=== PATIENT | male | born 1995 ===

== ENCOUNTER 2022-03-15 21:24 | Inpatient (IN) | payer MEDICAID ==
[~2022-03-15] VITALS: Ht 167.6 cm; Wt 64.0 kg
[2022-03-15] MEDS ORDERED: DIAZEPAM 5 MG/ML 2 ML SYRINGE IM ONE (22:30)
[2022-03-15 22:51] LABS: COVID AG,FIA SOURCE NASAL SWAB
[2022-03-15 23:34] LABS: BASOPHILS % (AUTO) 0.3 % (0.0-2.0); EOSINOPHILS % (AUTO) 0.4 % (1.0-6.0); HEMATOCRIT 38.6 % (41-53); HEMOGLOBIN 13.6 g/dL (13.5-17.5); LYMPHOCYTES % (AUTO) 27.9 % (22.0-44.0); MEAN CORPUSCULAR HEMOGLOBIN 30.6 pg (26.0-34.0); MEAN CORPUSCULAR HGB CONC 35.2 G/dL (31.0-37.0); MEAN CORPUSCULAR VOLUME 87 fL (80-100); MONOCYTES # (AUTO) 0.8 K/uL (0.1-1.0); MONOCYTES % (AUTO) 7.8 % (2.0-9.0); NEUTROPHILS # (AUTO) 6.8 K/uL (1.8-7.7); NEUTROPHILS % (AUTO) 63.6 % (40.0-70.0); PLATELET COUNT (AUTO) 237 K/uL (150-450); RED BLOOD CELL COUNT(AUTO) 4.44 MIL/uL (4.50-5.90)
[2022-03-16 00:06] LABS: ANION GAP 12 mmol/L (8-16); CALCIUM, TOTAL 9.1 mg/dL (8.8-10.5); CARBON DIOXIDE 29 mmol/L (22-29); CHLORIDE 104 mmol/L (98-107); GLUCOSE,RANDOM 85 mg/dL (70-110); POTASSIUM 3.5 mmol/L (3.5-5.1); SODIUM SERUM 145 mmol/L (136-145); UREA NITROGEN, BLOOD 14 mg/dL (7-18)
[2022-03-16 00:07] LABS: GLOMERULAR FILTR. RATE CALC > 60 mL/min (>60)
[2022-03-16 00:12] LABS: ALANINE AMINOTRANSFERASE 33 U/L (12-78); ALBUMIN 3.9 g/dL (3.4-5.0); ALKALINE PHOSPHATASE 110 U/L (46-116); ASPARTATE AMINOTRANSFERASE 41 U/L (15-37); BILIRUBIN,TOTAL 0.8 mg/dL (0.1-1.0); TOTAL PROTEIN, SERUM 7.4 g/dL (6.4-8.2)
[2022-03-16] MEDS ORDERED: HALOPERIDOL LACTATE 5 MG/ML VIAL IM ONE (06:30)
[2022-03-16] MEDS ORDERED: LORazepam 2 MG/ML VIAL IM ONE (06:30)
[2022-03-16] MEDS ORDERED: DiphenhydrAMINE HCL 50 MG/ML VIAL IM ONE (06:30)
[2022-03-16] MEDS ORDERED: KETOROLAC TROMETHAMINE 60 MG/2 ML VIAL IM ONE (06:34)
[2022-03-16 11:10] VITALS: BP 103/66
[2022-03-17 09:59] VITALS: BP 91/55
[2022-03-17] MEDS: ARIPiprazole 10 MG TABLET PO SCH (11:11)
[2022-03-17 16:16] VITALS: BP 99/69
[2022-03-17] MEDS ORDERED: PETROLATUM,WHITE 28 GM JELLY TP PRN (17:30)
[2022-03-17] MEDS ORDERED: ALBUTEROL SULFATE HFA 90 MCG/PUFF 8 GM INHALER IH PRN (17:30)
[2022-03-17] MEDS ORDERED: NICOTINE 14 MG/24 HOUR PATCH TD PRN (17:30)
[2022-03-17] MEDS ORDERED: LOPERAMIDE HCL 2 MG CAPSULE PO PRN (17:30)
[2022-03-17] MEDS ORDERED: ONDANSETRON HCL 4 MG TABLET PO PRN (17:30)
[2022-03-17] MEDS ORDERED: CloNIDine HCL 0.1 MG TABLET PO PRN (17:30)
[2022-03-17] MEDS ORDERED: DOCUSATE SODIUM 100 MG CAPSULE PO PRN (17:30)
[2022-03-17] MEDS ORDERED: GuaiFENesin/D-METHORPHAN [SUGAR-FREE] 200-20MG/10 ML SYRUP UDCUP PO PRN (17:30)
[2022-03-17] MEDS ORDERED: MAGNESIUM HYDROXIDE SUSPENSION 30 ML UDCUP PO PRN (17:30)
[2022-03-17] MEDS ORDERED: ACETAMINOPHEN 325 MG TABLET PO PRN (17:30)
[2022-03-17] MEDS ORDERED: MAG HYDROX/AL HYDROX/SIMETH ES 30 ML SUSPENSION UDCUP PO PRN (17:30)
[2022-03-18] MEDS: ARIPiprazole 10 MG TABLET PO SCH (07:49)
[2022-03-18 09:10] VITALS: BP 114/69
[2022-03-18 13:05] VITALS: BP 141/80
[2022-03-18 16:33] VITALS: BP 118/72
[2022-03-19] MEDS: ARIPiprazole 10 MG TABLET PO SCH (08:43)
[2022-03-19 09:32] VITALS: BP 128/81
[2022-03-19] MEDS: SERTRALINE HCL 50 MG TABLET PO SCH (11:39)
[2022-03-19 17:09] VITALS: BP 120/76
[2022-03-20] MEDS: SERTRALINE HCL 50 MG TABLET PO SCH (08:20)
[2022-03-20] MEDS: ARIPiprazole 10 MG TABLET PO SCH (08:20)
[2022-03-21] MEDS: ARIPiprazole 10 MG TABLET PO SCH ×3 (08:22→11:26)
[2022-03-21] MEDS: SERTRALINE HCL 50 MG TABLET PO SCH ×2 (08:22→08:26)
[2022-03-21] MEDS ORDERED: ARIPiprazole LAUROXIL,SUBMICR. ER SUSPENSION 675 MG/2.4 ML SYRINGE IM ONE (09:00)
[2022-03-21] MEDS ORDERED: ARIPiprazole LAUROXIL ER SUSPENSION 882 MG/3.2 ML SYRINGE IM ONE (09:00)
[2022-03-22] MEDS: SERTRALINE HCL 50 MG TABLET PO SCH (08:40)
[2022-03-22] MEDS: IBUPROFEN 400 MG TABLET PO PRN (08:40)
[2022-03-22] MEDS: ARIPiprazole 10 MG TABLET PO SCH (08:41)
[2022-03-22 16:04] VITALS: BP 110/60
[2022-03-22 18:46] LABS: COVID AG,FIA SOURCE NASAL SWAB
[2022-03-22] MEDS: BACITRACIN 28 GM OINTMENT TP SCH (18:50)
[2022-03-23] MEDS: SERTRALINE HCL 50 MG TABLET PO SCH (08:15)
[2022-03-23] MEDS: ARIPiprazole 10 MG TABLET PO SCH (08:15)
[2022-03-23] MEDS: IBUPROFEN 400 MG TABLET PO PRN (08:15)
[2022-03-23] MEDS: BACITRACIN 28 GM OINTMENT TP SCH ×2 (08:16→16:40)
[2022-03-23 08:51] VITALS: BP 141/81
[2022-03-23] MEDS ORDERED: LORazepam 2 MG/ML VIAL ONE (12:41)
[2022-03-23] MEDS ORDERED: DiphenhydrAMINE HCL 50 MG/ML VIAL ONE (12:41)
[2022-03-23] MEDS ORDERED: HALOPERIDOL LACTATE 5 MG/ML VIAL ONE (12:41)
[2022-03-23] MEDS ORDERED: DiphenhydrAMINE HCL 50 MG/ML VIAL IM ONE (12:45)
[2022-03-23] MEDS ORDERED: LORazepam 2 MG/ML VIAL IM ONE (12:45)
[2022-03-23] MEDS ORDERED: HALOPERIDOL LACTATE 5 MG/ML VIAL IM ONE (12:45)
[2022-03-23 16:17] VITALS: BP 130/77
[2022-03-23 20:10] VITALS: BP 122/77
[2022-03-24] MEDS: ARIPiprazole 10 MG TABLET PO SCH (08:35)
[2022-03-24] MEDS: SERTRALINE HCL 50 MG TABLET PO SCH (08:35)
[2022-03-24] MEDS: HALOPERIDOL 5 MG TABLET PO PRN (08:36)
[2022-03-24] MEDS: LORazepam 2 MG TABLET PO PRN (08:36)
[2022-03-24] MEDS: BACITRACIN 28 GM OINTMENT TP SCH ×2 (08:49→16:33)
[2022-03-25] MEDS: ARIPiprazole 10 MG TABLET PO SCH (08:15)
[2022-03-25] MEDS: SERTRALINE HCL 50 MG TABLET PO SCH (08:16)
[2022-03-25] MEDS: BACITRACIN 28 GM OINTMENT TP SCH ×2 (08:16→16:46)
[2022-03-25 08:25] VITALS: BP 141/82
[2022-03-25 15:32] LABS: APPEARANCE,URINE CLEAR (CLEAR); BILIRUBIN,URINE NEGATIVE (NEGATIVE); GLUCOSE, URINE (UA) NEGATIVE (NEGATIVE); KETONES,URINE NEGATIVE (NEGATIVE); LEUKOCYTE ESTERASE ,URINE NEGATIVE (NEGATIVE); NITRATE,URINE NEGATIVE (NEGATIVE); OCCULT BLOOD,URINE NEGATIVE (NEGATIVE); PROTEIN,URINE NEGATIVE (NEGATIVE); SPECIFIC GRAVITIY, URINE 1.013 (1.003-1.030); UROBILINOGEN,URINE <=1.0 mg/dL (<=1.0)
[2022-03-25 15:43] LABS: AMPHET/METH SCREEN,URINE NEGATIVE (NEGATIVE); BARBITURATE SCREEN, URINE NEGATIVE (NEGATIVE); BENZODIAZEPINES SCREEN,URINE NEGATIVE (NEGATIVE); CANNABINOID SCREEN,URINE NEGATIVE (NEGATIVE); COCAINE SCREEN,URINE NEGATIVE (NEGATIVE); METHADONE SCREEN, URINE NEGATIVE (NEGATIVE); OPIATE SCREEN,URINE NEGATIVE (NEGATIVE)
[2022-03-25 15:45] LABS: PHENCYCLIDINE SCREEN,URINE NEGATIVE (NEGATIVE)
[2022-03-25 16:21] VITALS: BP 131/77
[2022-03-26] MEDS: BACITRACIN 28 GM OINTMENT TP SCH ×2 (08:08→16:15)
[2022-03-26] MEDS: HALOPERIDOL 5 MG TABLET PO PRN (08:08)
[2022-03-26] MEDS: ARIPiprazole 10 MG TABLET PO SCH (08:08)
[2022-03-26] MEDS: SERTRALINE HCL 50 MG TABLET PO SCH (08:08)
[2022-03-26] MEDS: LORazepam 2 MG TABLET PO PRN (08:08)
[2022-03-26 08:27] VITALS: BP 137/63
[2022-03-26 16:07] VITALS: BP 134/81
[2022-03-27] MEDS: ARIPiprazole 10 MG TABLET PO SCH (07:47)
[2022-03-27] MEDS: SERTRALINE HCL 50 MG TABLET PO SCH (07:47)
[2022-03-27] MEDS: BACITRACIN 28 GM OINTMENT TP SCH ×2 (07:48→15:54)
[2022-03-27 08:00] VITALS: BP 142/101
[2022-03-27 16:19] VITALS: BP 122/74
[2022-03-28] MEDS: ZOLPIDEM TARTRATE 10 MG TABLET PO PRN (01:53)
[2022-03-28 08:00] VITALS: BP 119/70
[2022-03-28] MEDS: SERTRALINE HCL 50 MG TABLET PO SCH (08:39)
[2022-03-28] MEDS: ARIPiprazole 10 MG TABLET PO SCH (08:39)
[2022-03-28] MEDS: BACITRACIN 28 GM OINTMENT TP SCH ×2 (09:20→16:18)
[2022-03-28 16:00] VITALS: BP 139/82
[2022-03-29 06:58] LABS: COVID AG,FIA SOURCE NASAL SWAB
[2022-03-29] MEDS: ARIPiprazole 10 MG TABLET PO SCH (08:33)
[2022-03-29] MEDS: SERTRALINE HCL 50 MG TABLET PO SCH (08:33)
[2022-03-29 11:04] VITALS: BP 128/91
[2022-03-29] MEDS: BACITRACIN 28 GM OINTMENT TP SCH ×2 (12:43→16:02)
[2022-03-29 16:30] VITALS: BP 133/88
[2022-03-30] MEDS: ARIPiprazole 10 MG TABLET PO SCH (08:49)
[2022-03-30] MEDS: BACITRACIN 28 GM OINTMENT TP SCH ×2 (08:49→16:54)
[2022-03-30] MEDS: SERTRALINE HCL 50 MG TABLET PO SCH (08:49)
[2022-03-30 09:27] VITALS: BP 131/82
[2022-03-30] MEDS: LORazepam 2 MG TABLET PO PRN (13:29)
[2022-03-31 08:00] VITALS: BP 159/83
[2022-03-31] MEDS: BACITRACIN 28 GM OINTMENT TP SCH ×2 (08:07→17:04)
[2022-03-31] MEDS: SERTRALINE HCL 50 MG TABLET PO SCH (08:07)
[2022-03-31] MEDS ORDERED: BENZTROPINE MESYLATE 1 MG TABLET PO ONE (14:45)
[2022-03-31] MEDS: BENZTROPINE MESYLATE 1 MG TABLET PO SCH (20:36)
[2022-04-01 08:06] VITALS: BP 128/79
[2022-04-01] MEDS: SERTRALINE HCL 50 MG TABLET PO SCH (08:11)
[2022-04-01] MEDS: BACITRACIN 28 GM OINTMENT TP SCH ×2 (08:11→16:31)
[2022-04-01 08:39] VITALS: BP 141/70
[2022-04-01 08:40] VITALS: BP 141/70
[2022-04-01] MEDS: LORazepam 2 MG TABLET PO PRN ×2 (10:02→17:10)
[2022-04-01] MEDS ORDERED: SERT-439 PO (14:44)
[2022-04-01] MEDS ORDERED: BENZ1TAB96 PO (14:44)
[2022-04-01] MEDS ORDERED: ARIP882S2 IM (14:44)
[2022-04-01 16:34] VITALS: BP 123/80
[2022-04-01] MEDS: HALOPERIDOL 5 MG TABLET PO PRN (17:10)
[2022-04-01] MEDS: BENZTROPINE MESYLATE 1 MG TABLET PO SCH (20:27)
[2022-04-01] MEDS: ZOLPIDEM TARTRATE 10 MG TABLET PO PRN (20:56)
[2022-04-02] MEDS: BACITRACIN 28 GM OINTMENT TP SCH (07:49)
[2022-04-02] MEDS: SERTRALINE HCL 50 MG TABLET PO SCH (07:49)
[2022-04-20] MEDS ORDERED: ARIPiprazole LAUROXIL ER SUSPENSION 882 MG/3.2 ML SYRINGE IM SCH (09:00)
== END 2022-04-02 08:30 | disposition home or self-care (01) | DRG 750 ==
LOC: EMS 21:24 → 3EC 03-16 07:37
PROVIDERS: ADMIT Psychiatry & Neurology Psychiatry; ATTEND Psychiatry & Neurology Psychiatry
DX: F20.0 Paranoid schizophrenia (principal); I95.9 Hypotension, unspecified; R45.851 Suicidal ideations; Z20.822 Contact with and (suspected) exposure to COVID-19; F15.90 Other stimulant use, unspecified, uncomplicated; G47.00 Insomnia, unspecified; D53.9 Nutritional anemia, unspecified; Z79.899 Other long term (current) drug therapy
CPT/HCPCS: 80053; 80307; 81003; 85025; 99285; G0480; J1200; J1630; J1885; J2060; Q9967

== ENCOUNTER 2022-04-12 11:17 | Emergency (ER) | payer MEDICAID, OTHER ==
[~2022-04-12 11:17] MED LIST: ARIP882S2 IM; BENZ1TAB96 PO; SERT-439 PO
== END 2022-04-12 11:49 | disposition left against medical advice (07) ==
LOC: EMS 11:17
DX: F20.0 Paranoid schizophrenia (principal)
CPT/HCPCS: 99283; Z7502